=== PATIENT | male | born 1990 | race African-American/Black ===

== ENCOUNTER 2017-10-26 02:55 | Emergency (ER) | payer OTHER ==
[2017-10-26] MEDS ORDERED: Lidocaine 1% w/Epinephrine 1:100K 20 ML VIAL ONE (03:22)
[2017-10-26] MEDS ORDERED: Amoxicillin/Potassium Clav 875 MG TAB ONE (05:20)
== END 2017-10-26 05:35 ==
LOC: ERS 02:55 → EEVIPCON 02:55 → ERS 05:35
DX: S01.511A Laceration without foreign body of lip, initial encounter (principal); W06.XXXA Fall from bed, initial encounter
CPT/HCPCS: 12013; J2001